=== PATIENT | male | born 1935 | race Caucasian/White ===

== ENCOUNTER → 2016-12-26 | Outpatient (CLI) | payer MEDICARE, MEDICAID ==
[~2016-12-26] MED LIST: BACIDCA PO; CHLO25TA3 PO; CHOL4PKT PO; COSOPHPLUS OU; FOLI1TAB86 PO; GASTROGRAFIN SOLUTION 30ML (Q9963) As Ordered ONE; ISOVUE-370 76% 100ML VIAL (Q9967) As Ordered ONE; LEVO500T PO; LISI5TAB PO; THERTAB56 PO; TRAV04OPD OU; VALS160T PO; VITA100T2 PO
--- NOTE | 2016-12-26 12:49 | REP ---
CT NECK WITH CONTRAST: HISTORY: Metastatic carcinoma. Contrast: Isovue 370 100 mL. COMPARISON: 10/06/2016 There is thickening of the epiglottis and aryepiglottic folds. Increased density is present in the retropharyngeal, pre-epiglottic and paralaryngeal spaces. This represent post radiation change. Increased soft tissue density is present in the carotid spaces consistent with scarring. The naso- and oropharynx and subglottic trachea are normal in appearance. The salivary and thyroid glands are normal. Small lymph nodes less than 1 cm in size are present in the posterior triangles and subdental area. Atherosclerotic calcification is present at the carotid bifurcations. 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 A catheter is present in the right internal jugular vein. There is thickening of the right anterior subcutaneous soft tissue at the level of the larynx. This surrounds the right internal jugular vein catheter. The degree of soft tissue thickening is decreased compared to the previous study. Degenerative change is present in the cervical spine. The lung apices are clear. The visualized sinuses are clear. IMPRESSION: 1. There is no neck mass or adenopathy. 2. Findings consistent with post radiation change. 3. There is thickening of the right anterior subcutaneous tissue at the level of the larynx that is decreased compared to the previous study. Signed by Jeremy Gusman MD 12/26/2016 01:06 P
--- NOTE | 2016-12-26 13:06 | REP ---
CT STUDY OF THE ABDOMEN WITHOUT AND WITH IV CONTRAST: WITH ORAL CONTRAST. 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 Comparison CT study of the abdomen is from August 04, 2016. CT CONTRAST DOSE: 100 mL of Isovue-[address] FINDINGS: The liver and the spleen are normal in size, homogeneous in texture on pre- and postcontrast images. There is a large heterogeneously enhancing mass in the right lower lobe of the lung discussed in greater detail on the chest CT study. There are cysts in the upper pole of each kidney, one on each side. These are unchanged. No adrenal lesion is seen on either side. There are two retrocaval lymph nodes at the level of the diaphragmatic chet on the right side which are unchanged from the prior study of August 04, 2016. Similarly, there are two periaortic lymph nodes at the level of the diaphragmatic chet on the left. These are felt to be unchanged as well. The largest of these measures 9 mm in short-axis dimension, unchanged by my measurements from the prior study. No progressive change is seen. No pancreatic mass is observed. No other periaortic or retroperitoneal or upper abdominal adenopathy is seen. Small and large intestinal bowel loops are unremarkable. No bony destructive lesion is appreciated. IMPRESSION: Stable upper abdominal lymph nodes. No new intra-abdominal finding. Large mass in the right lower lobe of the lung. Signed by Angel Patton MD 12/26/2016 04:46 P
--- NOTE | 2016-12-26 13:20 | REP ---
CT STUDY OF THE CHEST WITH IV CONTRAST: HISTORY: Metastatic head and neck cancer to the lungs. Comparison chest CT study is from October 06, 2016. Comparison is also made with August 04, 2016. CT CONTRAST DOSE: 100 mL of Isovue-[address] FINDINGS: There is a large metastatic mass lesion in the right lower lobe again noted. Current dimensions are 6.2 cm craniocaudal by 5.7 cm medial to lateral by 5.6 cm anterior to posterior. On October 06, 2016, these dimensions were 5.6 x 5.2 x 4.6 cm. This mass is very slightly larger. There is a 4 mm nodule in the right upper lobe on today's CT study which has increased in size from the 10/06/2016 study. This cannot be seen on the August 04, 2016 prior exam. There is a nodule in the right lower lobe anteriorly adjacent to the major fissure which has increased from 7 to 9 mm. There are multiple other metastatic pulmonary nodules which appear to be unchanged. There is right hilar, subcarinal, and precarinal adenopathy which is felt to be unchanged in the interval since the most recent prior study. No new adenopathy is seen. There is a small quantity of right pleural fluid. This is not a new finding. The large mass in the right lower lobe abuts the pleural surface over a 4.9 cm interface which has increased since the prior study. No bony destructive lesion is seen. IMPRESSION: There is evidence of progression of intrathoracic disease as above. Signed by Anegl Patton MD 12/26/2016 04:46 P
== END ==
LOC: M RAD 09:21
PROVIDERS: ATTEND Internal Medicine Medical Oncology
DX: C76.0 Malignant neoplasm of head, face and neck (principal); C34.90 Malignant neoplasm of unspecified part of unspecified bronchus or lung; R93.8 Abnormal findings on diagnostic imaging of other specified body structures
CPT/HCPCS: 70491; 71260; 74170; Q9963; Q9967

== ENCOUNTER → 2017-01-26 | Outpatient (REF) | payer MEDICARE, MEDICAID ==
[~2017-01-26] MED LIST changes: -GASTROGRAFIN SOLUTION 30ML (Q9963) As Ordered ONE; -ISOVUE-370 76% 100ML VIAL (Q9967) As Ordered ONE
[2017-01-26 14:48] LABS: THYROXINE (T4) 6.9 UG/DL (4.5-12.0)
== END ==
LOC: M LAB REF 13:12
PROVIDERS: ATTEND Internal Medicine Medical Oncology
DX: C32.9 Malignant neoplasm of larynx, unspecified (principal); Z79.899 Other long term (current) drug therapy

== ENCOUNTER → 2017-02-16 | Outpatient (REF) | payer MEDICARE, MEDICAID ==
[2017-02-16 13:56] LABS: THYROXINE (T4) 8.3 UG/DL (4.5-12.0)
== END ==
LOC: M LAB REF 13:07
PROVIDERS: ATTEND Internal Medicine Medical Oncology
DX: C32.9 Malignant neoplasm of larynx, unspecified (principal); Z79.899 Other long term (current) drug therapy

== ENCOUNTER 2017-02-26 09:51 | Emergency (ER) | payer MEDICARE, MEDICAID ==
[~2017-02-26] VITALS: Ht 170.2 cm; Wt 70.3 kg
[2017-02-26] MEDS ORDERED: TRAV04OPD OU (10:04)
[2017-02-26] MEDS ORDERED: KEYT1SOL IV (10:04)
[2017-02-26] MEDS ORDERED: [UNRECOGNIZED DRUG - OTHER] (10:04)
[2017-02-26] MEDS ORDERED: IPRATROPIUM 0.5MG/ALBUTEROL 2.5MG INH SOL UD 3ML (DUONEB)(J7620) NEB ONE (10:15)
[2017-02-26] MEDS ORDERED: PROA1AER INH (10:46)
[2017-02-26 10:53] VITALS: BP 133/64
--- NOTE | 2017-02-26 10:55 | REP ---
CHEST, TWO VIEWS: HISTORY: Cough. COMPARISON: Portable chest 05/26/[address] chest 12/26/2016. Several small ill-defined parenchymal densities are present in the lungs. The heart is normal in size. The pulmonary vasculature is normal in appearance. The bony structure is intact. An Izhhln-R-Gkah catheter is present. IMPRESSION: There are several small ill-defined parenchymal densities in the lungs. These are better seen on recent CT of the chest 12/26/2016. Signed by Jeremy Gusman MD 02/26/2017 11:00 A
--- NOTE | 2017-02-26 12:10 | ED PDOC ---
Post-Departure Follow-Up radiology report faxed to Dr. Marley, PCP Sindy Martinez MD February 26, 2017 12:10
== END 2017-02-26 10:55 | disposition home or self-care (01) ==
LOC: M ED 10:22
DX: J44.0 Chronic obstructive pulmonary disease with (acute) lower respiratory infection (principal); I10 Essential (primary) hypertension; F17.200 Nicotine dependence, unspecified, uncomplicated; Z79.899 Other long term (current) drug therapy

== ENCOUNTER → 2017-03-16 | Outpatient (REF) | payer MEDICARE, MEDICAID ==
[~2017-03-16] MED LIST changes: +KEYT1SOL IV; +PROA1AER INH; +[UNRECOGNIZED DRUG - OTHER]
[2017-03-16 13:37] LABS: FREE T4 0.96 NG/DL (0.76-1.46)
== END ==
LOC: M LAB REF 12:54
PROVIDERS: ATTEND Internal Medicine Medical Oncology
DX: C34.90 Malignant neoplasm of unspecified part of unspecified bronchus or lung (principal); Z79.899 Other long term (current) drug therapy

== ENCOUNTER → 2017-04-15 | Outpatient (CLI) | payer MEDICARE, MEDICAID ==
[~2017-04-15] MED LIST changes: +ANUC25SU; +BENT10CA PO; +DEXA4TA PO; +GABA-279 PO; +LEVO50TA5 PO; +MEGA625S PO; +OXYC1TAB23 PO; +PANT40TA2 PO; +PERC5TAB12 PO; -PROA1AER INH; +PROAAER10 INH; +PROC2.5C; +REGL10TA6 PO
== END ==
LOC: M IRPRO 09:39
PROVIDERS: ATTEND Internal Medicine Medical Oncology
DX: Z53.8 Procedure and treatment not carried out for other reasons (principal)

== ENCOUNTER → 2017-04-17 | Outpatient (REF) | payer MEDICARE, MEDICAID ==
[~2017-04-17] MED LIST changes: -ANUC25SU; -BENT10CA PO; -DEXA4TA PO; -GABA-279 PO; -LEVO50TA5 PO; -MEGA625S PO; -OXYC1TAB23 PO; -PANT40TA2 PO; -PERC5TAB12 PO; +PROA1AER INH; -PROAAER10 INH; -PROC2.5C; -REGL10TA6 PO
[2017-04-17 14:39] LABS: FREE T4 0.35 NG/DL (0.76-1.46)
== END ==
LOC: M LAB REF 12:34
PROVIDERS: ATTEND Internal Medicine Medical Oncology
DX: C32.9 Malignant neoplasm of larynx, unspecified (principal)

== ENCOUNTER → 2017-04-17 | Outpatient (CLI) | payer MEDICARE, MEDICAID ==
[~2017-04-17] MED LIST changes: +ISOVUE-300 61% 50ML VIAL (Q9967) As Ordered ONE
--- NOTE | 2017-04-18 15:37 | REPKIM ---
CLINICAL HISTORY: Patient has a right IJ chest [id number]. Patient presents for suspected port malfunction. PROCEDURE PERFORMED: Contrast injection via the pre-existing chest port INTERVENTIONALIST: Evie Benton MD CONSENT: The risks, benefits and alternatives to the procedure were explained to the patient and informed written consent was obtained. CONTRAST: less than 10 mL Isovue 300 SEDATIOIN: None EBL: None FLUORO TIME: 0.1 minutes PROCEDURE/FINDINGS: The patient was brought to the interventional radiology suite and was positioned supine on the table. Time out procedure was performed. The right chest was prepped and draped in the usual sterile fashion. Initial fluoroscopy showed the pre-existing right chest Drsxnl-Z-Udcf is intact with its tip at the cavoatrial junction. The fluoroscopy showed the catheter in a satisfactory course with no evidence of kink. The port was accessed using a 22-gauge Palomo needle. Contrast was injected and DSA images were obtained. This showed the port is patent with no evidence of extravasation of contrast. The port was then flushed with saline. Heparin (100 units/ml), was locked in the port. The Palomo needle was removed. The patient tolerated the procedure well with no immediate complications. This procedure was performed using fluoroscopy. Dr. Benton was present. IMPRESSION: The pre-existing right chest Sxngal-C-Iekh catheter is in a satisfactory course with its tip at the cavoatrial junction. The port aspirates and flushes freely with no evidence of extravasation. The chest port is ready for use. cc: Antonieta Bonilla MD [facility]
== END | disposition home or self-care (01) ==
LOC: M IRPRO 09:38
DX: C32.9 Malignant neoplasm of larynx, unspecified (principal)
CPT/HCPCS: 36598; 84439; 84443; 84481; Q9967

== ENCOUNTER → 2017-05-01 | Outpatient (CLI) | payer MEDICARE, MEDICAID ==
[~2017-05-01] MED LIST changes: +ANUC25SU; +BENT10CA PO; +DEXA4TA PO; +GABA-279 PO; -ISOVUE-300 61% 50ML VIAL (Q9967) As Ordered ONE; +ISOVUE-370 76% 100ML VIAL (Q9967) As Ordered ONE; +LEVO50TA5 PO; +MEGA625S PO; +OXYC1TAB23 PO; +PANT40TA2 PO; +PERC5TAB12 PO; -PROA1AER INH; +PROAAER10 INH; +PROC2.5C; +REGL10TA6 PO
--- NOTE | 2017-05-01 12:17 | REP ---
Clinical: Malignancy for follow up. Technique: Axial contrast enhanced images from the thoracic inlet to the upper abdomen using 100 ml Isovue 370 intravenous contrast material with coronal and sagittal re-formations. Comparison: 03/12/2017. Findings: Mass lesion in the medial right lower lobe appears to have increased from prior examination currently measuring 6.1 cm maximal diameter previously measuring 5.1 cm maximal diameter at comparable levels. Right infrahilar mass/adenopathy is also increased from prior examination along with mediastinal and right hilar lymph nodes. Smaller scattered metastatic foci in the right upper lobe show slight increase in size as do the satellite metastatic lesions in the left upper lobe. No pleural effusion. No pneumothorax. Tracheobronchial tree is patent. Atherosclerotic changes to the thoracic aorta and coronary arteries again noted and stable. No pericardial effusion or cardiomegaly. Surrounding musculoskeletal structures demonstrate degenerative change. Limited evaluation of the upper abdomen demonstrates normal bilateral adrenal glands and renal hypodensities which likely represent cysts. Small lymph nodes in the epigastric region may be slightly increased in size including a single lymph node just medial to the lesser curvature of the stomach which measures 14 mm on current examination and previously measured 9 mm at comparable levels. Impression: 1. Intrathoracic metastatic lesions and mediastinal/hilar adenopathy appear to have increased in size compared to prior examination. 2. Slight increase in size to the upper abdominal epigastric lymph nodes. 3. Renal hypodensities similar to prior examination likely representing cysts. Signed by Javier Domingo MD 05/01/2017 12:08 P
== END ==
LOC: M RAD 11:08
PROVIDERS: ATTEND Internal Medicine Medical Oncology
DX: R07.9 Chest pain, unspecified (principal); R93.8 Abnormal findings on diagnostic imaging of other specified body structures; R59.0 Localized enlarged lymph nodes
CPT/HCPCS: 71260; Q9967

== ENCOUNTER → 2017-05-04 | Outpatient (CLI) | payer MEDICARE, MEDICAID ==
[~2017-05-04] MED LIST changes: -ISOVUE-370 76% 100ML VIAL (Q9967) As Ordered ONE
--- NOTE | 2017-05-04 10:30 | REP ---
THORACIC SPINE, THREE VIEWS: HISTORY: Left scapula pain. There is no acute fracture or subluxation. There is loss of height of several mid and lower thoracic intervertebral discs. Osteophytes are present in the lower thoracic spine. IMPRESSION: Degenerative change as described above. Signed by Jeremy Gusman MD 05/04/2017 10:37 A
--- NOTE | 2017-05-04 10:31 | REP ---
LEFT SCAPULA, TWO VIEWS: HISTORY: Scapula pain. There is no acute fracture or dislocation. The joint spaces are normal in appearance. IMPRESSION: There is no acute fracture or dislocation. Signed by Jeremy Gusman MD 05/04/2017 10:36 A
== END ==
LOC: M RAD 09:59
PROVIDERS: ATTEND Internal Medicine Medical Oncology
DX: M25.512 Pain in left shoulder (principal); M51.34 Other intervertebral disc degeneration, thoracic region; M25.78 Osteophyte, vertebrae

== ENCOUNTER → 2017-05-12 | Outpatient (REF) | payer MEDICARE, MEDICAID ==
[2017-05-12 13:39] LABS: FREE T4 0.48 NG/DL (0.76-1.46)
== END ==
LOC: M LAB REF 12:19
PROVIDERS: ATTEND Internal Medicine Medical Oncology
DX: C32.9 Malignant neoplasm of larynx, unspecified (principal); Z79.899 Other long term (current) drug therapy

== ENCOUNTER → 2017-05-18 | Outpatient (CLI) | payer MEDICARE, MEDICAID ==
--- NOTE | 2017-05-18 14:40 | REP ---
WHOLE BODY BONE SCAN: Following the intravenous administration of 22 mCi of technetium-99m MDP, patient's whole body is imaged in the anterior and posterior projections. Positional oblique images of the thoracic and pelvic regions are performed as well as lateral views of the calvarium, knees, and feet. Linear increased uptake is seen in the posterior left 4th rib compatible with metastatic disease. There is a rounded focal area of increased uptake in the right occipital bone also compatible with a metastatic lesion. There appears to be increased uptake in the left posterior facets of L5 probably due to arthritic changes. Mild arthritic uptake is seen in the hands and wrists bilaterally as well as the knees and feet. There is increased uptake in the right superior pubic bone suspicious for metastatic disease. IMPRESSION: Three foci of increased uptake suspicious for metastatic disease, in the right occipital bone, right superior pubic bone, and left 4th rib posteriorly. Signed by Tonny Canales MD 05/18/2017 05:25 P
== END ==
LOC: M RAD 09:27
PROVIDERS: ATTEND Internal Medicine Medical Oncology
DX: M25.512 Pain in left shoulder (principal); C32.9 Malignant neoplasm of larynx, unspecified; R93.7 Abnormal findings on diagnostic imaging of other parts of musculoskeletal system
CPT/HCPCS: 78306; A9503

== ENCOUNTER 2017-05-28 09:34 | Emergency (ER) | payer MEDICARE, MEDICAID ==
[~2017-05-28] VITALS: Ht 170.2 cm; Wt 70.4 kg
[~2017-05-28 09:34] MED LIST changes: -ANUC25SU; -BENT10CA PO; -DEXA4TA PO; -GABA-279 PO; -LEVO50TA5 PO; -MEGA625S PO; -OXYC1TAB23 PO; -PANT40TA2 PO; -PERC5TAB12 PO; -PROC2.5C; -REGL10TA6 PO
[2017-05-28] MEDS ORDERED: LEVO50TA5 PO (09:51)
[2017-05-28] MEDS ORDERED: ANUC25SU (09:51)
[2017-05-28] MEDS ORDERED: PROC2.5C (09:51)
[2017-05-28] MEDS ORDERED: NS 500 ML IV ONE (10:45)
[2017-05-28 11:08] LABS: BASO % 0.5 % (0.0-1.0); EOS # 0.4 K/mm3 (0.0-0.50); EOS % 4.7 % (0.0-3.0); LARGE UNSTAINED CELL # 0.2 K/mm3 (0.0-0.4); LARGE UNSTAINED CELL % 2.2 % (0.0-4.0); LYMPH # 0.9 K/mm3 (1.5-4.5); MEAN CORPUSCULAR HEMOGLOBIN 29.6 pg (27.0-33.0); MEAN CORPUSCULAR HGB CONC 34.4 g/dl (32.0-36.5); MEAN CORPUSCULAR VOLUME 85.9 fl (80.0-96.0); MONO # 0.7 K/mm3 (0.0-0.8); MONO % 7.7 % (0.0-5.0); NEUTROPHILS # 6.6 K/mm3 (1.8-7.7); NEUTROPHILS % 74.9 % (36.0-66.0); PLATELET COUNT, AUTOMATED 419 k/mm3 (150-450); RED CELL DISTRIBUTION WIDTH 14.9 % (11.5-14.5); WHITE BLOOD COUNT 8.7 K/mm3 (4.0-10.0)
[2017-05-28 11:23] LABS: ALBUMIN 3.9 GM/DL (3.2-5.2); ALBUMIN/GLOBULIN RATIO 0.93 (1.00-1.93); ALKALINE PHOSPHATASE 77 U/L (45-117); ALT/SGPT 13 U/L (12-78); ANION GAP 8 MEQ/L (8-16); AST/SGOT 15 U/L (15-37); BILIRUBIN,DIRECT 0.2 MG/DL (0.0-0.2); BILIRUBIN,TOTAL 0.8 MG/DL (0.2-1.0); BLOOD UREA NITROGEN 15 MG/DL (7-18); CALCIUM LEVEL 9.3 MG/DL (8.8-10.2); CARBON DIOXIDE LEVEL 30 MEQ/L (21-32); CHLORIDE LEVEL 93 MEQ/L (98-107); CREATININE FOR GFR 1.09 MG/DL (0.70-1.30); GLOMERULAR FILTRATION RATE > 60.0 (>35); GLUCOSE, FASTING 101 MG/DL (83-110); POTASSIUM SERUM 3.8 MEQ/L (3.5-5.1); SODIUM LEVEL 131 MEQ/L (136-145); TOTAL PROTEIN 8.1 GM/DL (6.4-8.2)
[2017-05-28] MEDS ORDERED: REGL10TA6 PO (12:12)
[2017-05-28] MEDS ORDERED: BENT10CA PO (12:12)
--- NOTE | 2017-05-28 12:17 | REP ---
CT ABDOMEN AND PELVIS WITHOUT CONTRAST: 05/28/2017. Comparison: 03/12/2017 CT. Clinical history: Abdominal pain and bloating. Known lung carcinoma. Findings: CT abdomen and pelvis: Noncontrast images with coronal and sagittal reconstructions provided. The lung bases show a medial basal segment right lower lobe mass now up to 5.7 cm, previously 5.1 cm in February. No definite effusion. Some basilar fibrotic changes are noted. Heart is not enlarged. No pericardial thickening or effusion. No definite hiatal hernia. The liver, spleen, gallbladder, pancreas and adrenal glands are without acute finding. No calcified gallstones nor inflammatory changes adjacent to the pancreas. There are exophytic cysts off the upper poles of both kidneys unchanged. There is no hydronephrosis, stone or any definite solid renal mass. The aorta is heavily calcified without aneurysm. No periaortic or other retroperitoneal pathologic sized lymphadenopathy. There is no sign of colitis, diverticulitis or appendicitis. Stranding in the perinephric fat noted, left somewhat greater than right but not much changed. There is no ascites or free air in the abdomen or pelvis. Bones show degenerative disc changes and some facet arthropathy, but no compression deformity of destructive lesion in the spine and the visualized ribs were intact. CT pelvis: Sacrum, SI joints, pelvis, hips and symphysis pubis were all grossly intact and unchanged. Bladder is nearly empty. Its wall thickness cannot be judged. Seminal vesicles symmetric. There are vascular calcifications in the deep pelvis, iliac and femoral arteries as well as the seminal vesicles. There is calcification in the prostate, which is mildly enlarged. There is no ventral or inguinal hernia nor pathologic sized inguinal adenopathy. Some fluid-filled small bowel loops distally without dilatation. Impression: 1. Nonspecific gas pattern without abnormal dilatation, but fluid-filled bowel loops in their distal and terminal ileum may reflect some gastroenteritis or focal ileus. No obstruction, colitis, diverticulitis or other acute bowel abnormality. 2. Heavily calcified aorta and branches without aneurysm. 3. Bladder empty, cannot evaluation its wall thickness. There is no renal, ureteral or bladder stone. 4. The gallbladder distended without calcified stone or mass. The adrenal glands, liver, spleen and kidneys without definite acute finding. 5. 5.7 cm mass medial basal segment right lower lobe increased from 5.1 cm on the February study. Seen only in part. Signed by Teo Jaffe MD 05/28/2017 06:30 P
[2017-05-28 12:20] VITALS: BP 167/78
== END 2017-05-28 12:21 | disposition home or self-care (01) ==
LOC: M ED 09:34
DX: K52.9 Noninfective gastroenteritis and colitis, unspecified (principal); I70.0 Atherosclerosis of aorta; R91.1 Solitary pulmonary nodule; N28.1 Cyst of kidney, acquired; R10.9 Unspecified abdominal pain; C34.90 Malignant neoplasm of unspecified part of unspecified bronchus or lung; I49.9 Cardiac arrhythmia, unspecified; I10 Essential (primary) hypertension; Z87.891 Personal history of nicotine dependence; Z79.899 Other long term (current) drug therapy

== ENCOUNTER → 2017-05-29 | Outpatient (REF) | payer MEDICARE, MEDICAID ==
[~2017-05-29] MED LIST changes: +ANUC25SU; +BENT10CA PO; +DEXA4TA PO; +GABA-279 PO; +LEVO50TA5 PO; +MEGA625S PO; +OXYC1TAB23 PO; +PANT40TA2 PO; +PERC5TAB12 PO; +PROC2.5C; +REGL10TA6 PO
[2017-05-29 14:34] LABS: FREE T4 0.71 NG/DL (0.76-1.46)
== END ==
LOC: M LAB REF 13:31
PROVIDERS: ATTEND Internal Medicine Medical Oncology
DX: C32.9 Malignant neoplasm of larynx, unspecified (principal); Z79.899 Other long term (current) drug therapy

== ENCOUNTER 2017-07-02 05:34 | Emergency (ER) | payer MEDICARE, MEDICAID ==
[~2017-07-02] VITALS: Ht 167.6 cm; Wt 70.5 kg
[~2017-07-02 05:34] MED LIST changes: -DEXA4TA PO; -GABA-279 PO; -MEGA625S PO; -OXYC1TAB23 PO; -PANT40TA2 PO; -PERC5TAB12 PO
[2017-07-02] MEDS ORDERED: PERC5TAB12 PO (06:08)
[2017-07-02] MEDS ORDERED: OXYCODONE/APAP 5MG/325MG(BULK FOR ED) 1 TABLET PO ONE (06:15)
[2017-07-02 06:28] VITALS: BP 140/78
[2017-07-03] MEDS ORDERED: GABA-279 PO (04:39)
== END 2017-07-02 06:33 | disposition home or self-care (01) ==
LOC: M ED 05:34
DX: M25.512 Pain in left shoulder (principal); C78.00 Secondary malignant neoplasm of unspecified lung; Z79.899 Other long term (current) drug therapy

== ENCOUNTER 2017-07-03 04:24 | Emergency (ER) | payer MEDICARE, MEDICAID ==
[~2017-07-03] VITALS: Ht 167.6 cm; Wt 70.5 kg
[~2017-07-03 04:24] MED LIST changes: +PERC5TAB12 PO
[2017-07-03] MEDS ORDERED: GABA-279 PO (04:39)
[2017-07-03] MEDS ORDERED: ONDANSETRON 4MG/2ML VIAL (J2405) IV ONE (06:30)
[2017-07-03] MEDS ORDERED: NS 1,000 ML IV ONE (06:30)
[2017-07-03] MEDS ORDERED: MORPHINE 4 MG/ML 1ML SYRINGE IV ONE (06:30)
[2017-07-03 07:19] LABS: ALBUMIN/GLOBULIN RATIO 0.77 (1.00-1.93); ALKALINE PHOSPHATASE 62 U/L (45-117); ALT/SGPT 11 U/L (12-78); ANION GAP 10 MEQ/L (8-16); AST/SGOT 11 U/L (15-37); BILIRUBIN,DIRECT 0.2 MG/DL (0.0-0.2); BILIRUBIN,TOTAL 0.6 MG/DL (0.2-1.0); BLOOD UREA NITROGEN 13 MG/DL (7-18); CALCIUM LEVEL 8.6 MG/DL (8.8-10.2); CARBON DIOXIDE LEVEL 25 MEQ/L (21-32); CHLORIDE LEVEL 99 MEQ/L (98-107); CREATININE FOR GFR 0.91 MG/DL (0.70-1.30); GLOMERULAR FILTRATION RATE > 60.0 (>35); GLUCOSE, FASTING 108 MG/DL (83-110); POTASSIUM SERUM 3.9 MEQ/L (3.5-5.1); SODIUM LEVEL 134 MEQ/L (136-145); TOTAL PROTEIN 6.9 GM/DL (6.4-8.2)
[2017-07-03 07:29] LABS: BASO % 0.5 % (0.0-1.0); EOS # 0.2 K/mm3 (0.0-0.50); EOS % 3.4 % (0.0-3.0); LARGE UNSTAINED CELL # 0.1 K/mm3 (0.0-0.4); LARGE UNSTAINED CELL % 1.8 % (0.0-4.0); LYMPH # 0.6 K/mm3 (1.5-4.5); LYMPH % 8.1 % (24.0-44.0); MEAN CORPUSCULAR HEMOGLOBIN 30.3 pg (27.0-33.0); MEAN CORPUSCULAR HGB CONC 34.6 g/dl (32.0-36.5); MEAN CORPUSCULAR VOLUME 87.4 fl (80.0-96.0); MONO # 0.5 K/mm3 (0.0-0.8); NEUTROPHILS # 5.9 K/mm3 (1.8-7.7); NEUTROPHILS % 79.2 % (36.0-66.0); PLATELET COUNT, AUTOMATED 361 k/mm3 (150-450); RED CELL DISTRIBUTION WIDTH 14.1 % (11.5-14.5); WHITE BLOOD COUNT 7.5 K/mm3 (4.0-10.0)
[2017-07-03 08:33] VITALS: BP 152/80
== END 2017-07-03 08:35 | disposition home or self-care (01) ==
LOC: M ED 04:24
DX: I95.1 Orthostatic hypotension (principal); I10 Essential (primary) hypertension; J45.909 Unspecified asthma, uncomplicated; C32.9 Malignant neoplasm of larynx, unspecified; C79.51 Secondary malignant neoplasm of bone; E07.9 Disorder of thyroid, unspecified; Z79.899 Other long term (current) drug therapy; Z87.891 Personal history of nicotine dependence

== ENCOUNTER 2017-07-05 06:31 | Inpatient (IN) | payer MEDICARE, MEDICAID ==
[~2017-07-05] VITALS: Ht 167.6 cm; Wt 70.4 kg
[~2017-07-05 06:31] MED LIST changes: +GABA-279 PO
[2017-07-05] MEDS ORDERED: NS 1,000 ML IV ONE (07:15)
[2017-07-05] MEDS ORDERED: MORPHINE 4 MG/ML 1ML SYRINGE IV ONE (07:15)
[2017-07-05] MEDS ORDERED: ONDANSETRON 4MG/2ML VIAL (J2405) IV ONE (07:15)
[2017-07-05 07:23] LABS: INR 0.98
[2017-07-05 07:24] LABS: BASO % 0.4 % (0.0-1.0); EOS # 0.3 K/mm3 (0.0-0.50); EOS % 3.6 % (0.0-3.0); LARGE UNSTAINED CELL # 0.2 K/mm3 (0.0-0.4); LARGE UNSTAINED CELL % 2.4 % (0.0-4.0); LYMPH # 0.8 K/mm3 (1.5-4.5); LYMPH % 10.3 % (24.0-44.0); MEAN CORPUSCULAR HGB CONC 34.5 g/dl (32.0-36.5); MEAN CORPUSCULAR VOLUME 87.1 fl (80.0-96.0); MONO # 0.5 K/mm3 (0.0-0.8); MONO % 6.9 % (0.0-5.0); NEUTROPHILS # 5.8 K/mm3 (1.8-7.7); NEUTROPHILS % 76.4 % (36.0-66.0); PLATELET COUNT, AUTOMATED 425 k/mm3 (150-450); WHITE BLOOD COUNT 7.6 K/mm3 (4.0-10.0)
[2017-07-05 07:38] LABS: ANION GAP 11 MEQ/L (8-16); BLOOD UREA NITROGEN 10 MG/DL (7-18); CALCIUM LEVEL 9.2 MG/DL (8.8-10.2); CARBON DIOXIDE LEVEL 26 MEQ/L (21-32); CHLORIDE LEVEL 99 MEQ/L (98-107); CREATININE FOR GFR 1.01 MG/DL (0.70-1.30); GLOMERULAR FILTRATION RATE > 60.0 (>35); GLUCOSE, FASTING 104 MG/DL (83-110); SODIUM LEVEL 136 MEQ/L (136-145)
[2017-07-05] MEDS ORDERED: ISOVUE-370 76% 100ML VIAL (Q9967) As Ordered ONE (07:42)
--- NOTE | 2017-07-05 08:30 | REP ---
Clinical: History of pulmonary malignancy with shortness of breath. Technique: Axial contrast enhanced images from the thoracic inlet to the upper abdomen using 100 ml Isovue 370 intravenous contrast material with multiplanar re-formations. Findings: Satisfactory enhancement of the pulmonary vasculature is achieved and no filling defects are identified to suggest pulmonary embolus. Mediastinal and hilar adenopathy as well as metastatic lesions throughout the bilateral lung womack have increased in size. As example, the lesion in the left upper lobe previously measuring 8.5 mm currently measures 14.2 mm and conglomerate right infrahilar adenopathy previously measuring approximately 4 x 2.4 cm maximal diameter currently measures 5.3 x 3.5 cm maximal diameter. Mass in the right lower lobe has increased in overall volume as well. Adjacent small right lower lobe pleural effusion is also identified. Underlying chronic interstitial changes noted throughout the bilateral lung womack. Atherosclerotic changes to the thoracic aorta and coronary arteries noted without aortic aneurysm. The heart is upper limits of normal in size without pericardial effusion. There is no evidence for pneumothorax. The tracheobronchial tree is relatively patent although mass effect on bronchi to the right lower lobe through the area of adenopathy is suggested which may eventually cause postobstructive atelectasis. Surrounding osseous structures without evidence for acute fracture. Limited evaluation of the upper abdomen demonstrates normal bilateral adrenal glands. There is an enlarged lymph node anterior to the IVC in the upper abdomen (image 204) which currently measures 1.7 cm diameter and previously measured 9 mm. Impression: 1. No evidence for pulmonary embolus. 2. Malignancy including metastatic disease, adenopathy, and primary lesion in the right lower lobe have increased from prior examination. 3. An upper abdominal lymph node anterior to the IVC at the level of the jose de jesus hepatis has increased and now appears metastatic. Signed by Javier Domingo MD 07/05/2017 08:21 A
[2017-07-05] MEDS ORDERED: ONDANSETRON 4MG/2ML VIAL (J2405) IV PRN (09:00)
[2017-07-05] MEDS ORDERED: BISACODYL 5 MG TAB PO PRN (09:00)
[2017-07-05] MEDS ORDERED: OXYC1TAB23 PO (10:06)
[2017-07-05] MEDS ORDERED: TRAV04OPD OU (10:06)
[2017-07-05] MEDS ORDERED: KETOROLAC 30 MG/ML VIAL (J1885) IV ONE (10:15)
[2017-07-05] MEDS ORDERED: ALPRAZolam 0.25 MG TAB PO ONE (10:15)
[2017-07-05] MEDS ORDERED: GABAPENTIN 100 MG CAP PO PRN (10:15)
[2017-07-05] MEDS: PERCOCET 5MG/325MG TAB PO PRN (10:18)
--- NOTE | 2017-07-05 10:30 | REP ---
Clinical: Left shoulder pain. Technique: Internal rotation, external rotation, and Y view. Comparison: 05/04/2017. Findings: Mild degenerative changes are appreciated. No acute fracture dislocation. No obvious osseous lytic or blastic lesions are identified to suggest metastatic disease. Impression: Mild age-related degenerative changes. Signed by Javier Domingo MD 07/05/2017 10:22 A
[2017-07-05] MEDS ORDERED: NALOXONE INJ 0.4 MG/1 ML VIAL (J2310) IV PRN (10:45)
[2017-07-05] MEDS ORDERED: MORPHINE 2 MG/ML 1ML SYRINGE IV PRN (10:45)
[2017-07-05] MEDS ORDERED: PERCOCET 5MG/325MG TAB PO ONE (11:00)
[2017-07-05 11:15] VITALS: BP_SYST 118; BP_SYST 130; BP_DIAS 66; BP_DIAS 69
--- NOTE | 2017-07-05 11:27 | REP ---
Clinical: Malignancy and metastatic disease with altered mental status. Comparison: 11/24/2011. Findings: Diffuse bilateral metastatic lesions are appreciated with surrounding vasogenic edema. There is no evidence of hydrocephalous or midline shift. The basilar cisterns are patent and without evidence for herniation. 2 cm lesion identified in the right temporal lobe; two lesions identified in the posterior right parietal lobe measure 1.9 cm and 2.4 cm; 2.1 cm lesion in the left parietal lobe; 1.3 cm lesion in the left parieto-occipital lobe; two lesions identified in the left frontal lobe measure 1.9 cm and 2.2 cm. Further smaller lesions cannot definitively be excluded. Impression: Diffuse bilateral metastatic disease with surrounding vasogenic edema. There is no evidence for midline shift or herniation. The ventricles and cisterns are symmetric and normal. Signed by Javier Domingo MD 07/05/2017 11:19 A
--- NOTE | 2017-07-05 12:44 | HPE ---
DATE OF ADMISSION: 07/05/2017 CHIEF COMPLAINT: "I had a panic attack and my left shoulder hurts." HISTORY OF THE PRESENT ILLNESS: This is an 82-year-old male with a history of metastatic laryngeal cancer (CA) with left scapular pain, had been evaluated previously with a bone scan on 05/18/2017, which showed increased suspicious metastatic disease in the right occipital bone, right superior pubic bone and left fourth rib posteriorly. He had undergone chemotherapy in the past and follows with Dr. Bonilla with plans for radiation and chemotherapy as an outpatient. He was found on repeat CT chest on 05/01/2017 to have intrathoracic metastatic lesions and mediastinal hilar adenopathy, which have increased in size, as well as upper abdominal epigastric lymphadenopathy. Due to complaints of lightheadedness and panic symptoms, the patient was evaluated for pulmonary embolism (PE) via CT chest with intravenous (IV) contrast on 07/05/2017 in the emergency room, which showed no pulmonary embolism. Metastatic lesions with mediastinal hilar lymphadenopathy throughout bilateral lung womack, which have increased in size. Left upper lobe previously measured 8.5 mm, currently measures 14.2 mm and right infrahilar adenopathy measuring 4 x 2.4 cm in diameter, currently measures 5.3 x 3.5 maximal diameter. The mass in the right lower lobe has also increased in volume with a small right lower lobe pleural effusion identified and chronic changes in bilateral lungs. Tracheobronchial tree is currently patent but adenopathy may eventually cause postobstructive atelectasis. Surrounding osseous structures had no acute fracture. Enlarged lymph node anterior to the IVC in the upper abdomen measures 1.7 cm from previous 9 mm. Hospitalist service was called for admission for pain control of the left shoulder, as well as evaluation for patient's "panic attack." The patient states his symptoms have worsened over the past 2 days starting with feeling scared and could not sleep for the past 2 days with some lightheadedness at times. He denies chest pain, pressure or tightness, palpitations. He had some episodes of lightheadedness without near syncope. No changes in vision, diplopia. No nausea, vomiting, abdominal pain, dysuria, urgency, frequency, fever or chills. He has had a 3-pound weight loss in the past week due to decrease in appetite. Often, he complains of not knowing what he is doing and is worried about wandering about in the home and not knowing why he is doing that. Per the who is present at the bedside, the patient has been alert and awake, able to recognize her at all times and able to converse adequately. He denies any symptoms of upper or lower extremity weakness, paresthesias, numbness, difficulty with word finding or slurring of speech. The patient is admitted for further evaluation of left shoulder pain to rule out metastatic disease and pain control for the left shoulder, and evaluation for his complaints of disorientation. PAST MEDICAL HISTORY: 1. Metastatic laryngeal cancer with significant mediastinal and hilar adenopathy bilateral lung womack. 2. Stage IV T1, N2 epiglottis squamous cell cancer, status post radiation with metastatic lesions to the right occipital bone, right pubic bone, left fourth rib. 3. Salmonella pancolitis. 4. Acute kidney injury, creatinine of 6.2, which resolved. 5. History of alcohol use. 6. Hypothyroidism. ALLERGIES: No known drug allergies. HOME MEDICATIONS: - Percocet one tablet every 6 hours as needed for pain - valsartan hydrochlorothiazide 160-12.5 one tablet daily - gabapentin 100 mg twice a day as needed - levothyroxine 50 mcg daily - Travatan Z one drop both eyes (OU) nightly PAST SURGICAL HISTORY: Cataract extraction. Rectal surgery 50 years ago for unknown reason. SOCIAL HISTORY: He lives with his . Smokes cigars. Drank alcohol 4-5 beers, last drink was some time ago. Activities of daily living are intact. The patient has limited DO NOT RESUSCITATE; he would like a trial of cardiopulmonary resuscitation but no intubation and no feeding tube. Medical Orders for Life-Sustaining Treatment (MOLST) form signed at the bedside. Healthcare proxy is the patient's daughter, Kavitha Vasquez. REVIEW OF SYSTEMS: Twelve-point system negative aside from positive findings in history of the present illness. PHYSICAL EXAMINATION: Vital Signs: Temperature 96.9, pulse 87, respiratory rate 20, blood pressure 146/71, 98% on room air. Generally, the patient is awake, alert, oriented to person and place, answering questions appropriately. He is anicteric. No jaundice. Pupils are equally round, reactive to light and accommodation. Extraocular muscles are intact. Normocephalic, atraumatic. No cervical lymphadenopathy. Previous well-healed scars in the right cervical area. No thyromegaly. The patient has point tenderness on the anterior aspect of the left shoulder. Range of motion is limited due to pain with abduction. Able to flex and extend at the elbow. Some difficulty with raising his left arm above his head. No crepitus. No effusion at the acromioclavicular (AC) joint. Lungs are diminished but clear to auscultation. No wheezing, rales, or rhonchi. Heart: S1, S2, sinus rhythm. No murmurs, rubs or gallopss. Abdomen: Soft, nontender, nondistended. Positive bowel sounds times four quadrants. No hepatosplenomegaly, rebound, guarding. Extremities: No cyanosis, clubbing or pitting edema. Motor function 5/5 times four extremities. LABORATORY DATA: White count 7.6, hemoglobin 12, hematocrit 35, platelet count 425, 76% neutrophils. Sodium 136, potassium 4, chloride 99, bicarbonate 26, BUN 10, creatinine 1, glucose of 104, calcium 9.2, total CK 43, MB fraction 1.2. Troponin less than 0.02. INR is 0.98. CT chest: Pulmonary embolism (PE) protocol shows no filling defects. No pulmonary embolism. Mediastinal and hilar adenopathy as well as metastatic lesions throughout the bilateral lung womack have increased in size. Lesion in the left upper lobe previously measured 8.5 mm, now measures 14.2 mm. Right infrahilar adenopathy measuring approximately 4 x 2.4 cm maximal diameter, currently measures 5.3 x 3.5 maximal diameter. Mass in the right lower lobe has increased in volume as well with adjacent small right lower lobe pleural effusions identified, underlying chronic interstitial changes in bilateral lung womack. The tracheobronchial tree is patent, although mass effect on bronchi to the right lobe through the area of adenopathy suggested, which may eventually cause postobstructive atelectasis. There is an enlarged lymph node anterior to the IVC in the upper abdomen, which measures 1.7 cm diameter and previously measured 9 mm. ASSESSMENT AND PLAN: This is an 82-year-old male with a prior history of laryngeal cancer, followed by Dr. Bonilla, squamous cell cancer of the epiglottis , status post radiation and chemotherapy per the patient with new lesions on bone scan and bilateral lungs and mediastinal and hilar adenopathy, which have increased since April. Metastatic lesions noted in the right occipital bone, pubic bone, left fourth rib, history of hypertension, hypothyroidism, Salmonella pancolitis, acute kidney injury, which resolved, presents to emergency room with a 2-day history of "panic attacks," unable to sleep at night for the past few days with intractable pain of the left shoulder, prompting him to present to the emergency room. The patient was evaluated with an x-ray of the left shoulder, which showed osteoarthritic changes. Due to confusion and disorientation, CT of the head was obtained in order to rule out metastatic lesions to the brain. The patient will be admitted as an inpatient for two midnights for the following issues: 1. Recurrent Squamous cell carcinoma of epiglottis, status post chemotherapy/ radiation, now with recurrrence and new metastatic lesions in the lungs and bone and presents with intractable left shoulder pain - x-ray shows no metastatic lesions there suggestive of malignancy. At this time, the patient will be given as needed Percocet, physical therapy (PT). Radiation oncology was due to see him on Thursday. Will consult radiation oncology in the morning and defer to Dr. Bonilla for further management as an outpatient with chemotherapy. Dr. Jm Menchaca has been made aware of the patient's admission to the hospital. 2. Altered Mental Status with known history of metastatic cancer to lungs, with mediastinal and hilar LAD, and bone, will need to rule out mets to the brain. Due to complaints of lightheadedness and disorientation, "I'm not sure what I'm doing at times," a CT of the head was obtained to rule out metastatic lesions to the brain. Decadron 4mg po tid if brain mets and vasogenic edema. 3. Insomnia secondary to severe anxiety. The patient will be given low dose Ambien 2-1/2 mg nightly. The patient may refuse. 4. Left shoulder pain. Arthritic changes on the x-ray. Will consult orthopedic surgery for possible steroid injections. As needed Percocet for now. Physical therapy, occupational therapy (OT) for discharge planning. 5. Weight loss. Most likely secondary to cancer cachexia. The patient states that he has had a 3-pound weight loss. Will start on Megace to increase his appetite and nutrition consult if needed if the patient eats less than 50% of his food for supplementary nutrition. 6. Hypertension. Resume home dose of lisinopril and hydrochlorothiazide. 7. Hypothyroidism. Check Thyroid-stimulating hormone (TSH). Resume home dose of Synthroid. 9. History of cataracts. Continue with Xalatan eye drops. 8. Code status: The patient has limited DNR; he would like a trial of cardiopulmonary resuscitation but no mechanical intubation. MTDD
[2017-07-05] MEDS: ENOXAPARIN 30 MG/0.3 ML SYR (J1650) SC SCH (13:31)
[2017-07-05] MEDS: MEGESTROL ES SUSP 625 MG/5 ML UDC PO SCH (13:31)
[2017-07-05 14:00] VITALS: BP_SYST 141; BP_SYST 152; BP_DIAS 67; BP_DIAS 74
[2017-07-05] MEDS: ALPRAZolam 0.25 MG TAB PO PRN (15:49)
[2017-07-05 20:00] VITALS: BP 147/73
[2017-07-05] MEDS: zolPIDEM TARTRATE 5 MG TAB PO SCH (21:01)
[2017-07-05] MEDS: LATANOPROST 0.005% OPHTH SOLN 2.5 ML OU SCH (21:10)
[2017-07-06] VITALS: BP 163/72
[2017-07-06] MEDS: LEVOTHYROXINE 100MCG TABLET (0.1MG) PO SCH (05:53)
[2017-07-06 08:00] VITALS: BP 130/63
--- NOTE | 2017-07-06 08:19 | ECGEPIP ---
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
[2017-07-06] MEDS: VALSARTAN 80 MG TAB (DIOVAN) PO SCH (09:11)
[2017-07-06] MEDS: ENOXAPARIN 30 MG/0.3 ML SYR (J1650) SC SCH (09:12)
[2017-07-06] MEDS: hydroCHLOROthiazide 12.5 MG CAPSULE PO SCH (09:12)
[2017-07-06] MEDS: MEGESTROL ES SUSP 625 MG/5 ML UDC PO SCH (09:12)
[2017-07-06 14:00] VITALS: BP 159/88
[2017-07-06] MEDS: PERCOCET 5MG/325MG TAB PO PRN (18:58)
[2017-07-06] MEDS: zolPIDEM TARTRATE 5 MG TAB PO SCH (21:30)
[2017-07-06] MEDS: LATANOPROST 0.005% OPHTH SOLN 2.5 ML OU SCH (21:31)
[2017-07-06] MEDS: ALPRAZolam 0.25 MG TAB PO PRN (21:35)
[2017-07-06 22:00] VITALS: BP 141/70
[2017-07-07] MEDS: LEVOTHYROXINE 100MCG TABLET (0.1MG) PO SCH (05:59)
[2017-07-07] MEDS: PERCOCET 5MG/325MG TAB PO PRN ×2 (05:59→14:51)
[2017-07-07 06:00] VITALS: BP 148/71
[2017-07-07 08:56] LABS: EOS % 0.1 % (0.0-3.0); LARGE UNSTAINED CELL % 0.5 % (0.0-4.0); LYMPH # 0.6 K/mm3 (1.5-4.5); LYMPH % 5.9 % (24.0-44.0); MEAN CORPUSCULAR HEMOGLOBIN 29.8 pg (27.0-33.0); MEAN CORPUSCULAR HGB CONC 33.8 g/dl (32.0-36.5); MEAN CORPUSCULAR VOLUME 88.2 fl (80.0-96.0); MONO # 0.3 K/mm3 (0.0-0.8); MONO % 3.2 % (0.0-5.0); NEUTROPHILS # 8.7 K/mm3 (1.8-7.7); NEUTROPHILS % 90.4 % (36.0-66.0); PLATELET COUNT, AUTOMATED 442 k/mm3 (150-450); RED CELL DISTRIBUTION WIDTH 14.3 % (11.5-14.5); WHITE BLOOD COUNT 9.6 K/mm3 (4.0-10.0)
[2017-07-07] MEDS: VALSARTAN 80 MG TAB (DIOVAN) PO SCH (09:00)
[2017-07-07] MEDS: hydroCHLOROthiazide 12.5 MG CAPSULE PO SCH (09:00)
[2017-07-07 09:01] LABS: ALBUMIN 3.3 GM/DL (3.2-5.2); ALBUMIN/GLOBULIN RATIO 0.97 (1.00-1.93); ALKALINE PHOSPHATASE 61 U/L (45-117); ALT/SGPT 11 U/L (12-78); ANION GAP 9 MEQ/L (8-16); AST/SGOT 11 U/L (15-37); BILIRUBIN,TOTAL 0.4 MG/DL (0.2-1.0); BLOOD UREA NITROGEN 14 MG/DL (7-18); CALCIUM LEVEL 7.9 MG/DL (8.8-10.2); CARBON DIOXIDE LEVEL 27 MEQ/L (21-32); CHLORIDE LEVEL 100 MEQ/L (98-107); CREATININE FOR GFR 1.03 MG/DL (0.70-1.30); GLOMERULAR FILTRATION RATE > 60.0 (>35); GLUCOSE, FASTING 156 MG/DL (83-110); MAGNESIUM LEVEL 2.3 MG/DL (1.8-2.4); POTASSIUM SERUM 4.2 MEQ/L (3.5-5.1); SODIUM LEVEL 136 MEQ/L (136-145); TOTAL PROTEIN 6.7 GM/DL (6.4-8.2)
[2017-07-07] MEDS: MEGESTROL ES SUSP 625 MG/5 ML UDC PO SCH (09:03)
[2017-07-07] MEDS: ENOXAPARIN 30 MG/0.3 ML SYR (J1650) SC SCH (09:04)
[2017-07-07 09:06] VITALS: BP 111/66
--- NOTE | 2017-07-07 09:42 | CR ---
RADIATION ONCOLOGY CONSULTATION NOTE DATE: 07/06/2017 CHART NUMBER: [id number] DIAGNOSIS: Supraglottic larynx cancer stage IV A, [id number], now metastatic. ECOG PERFORMANCE STATUS: 3. CONSULTATION NOTE: Mr. Vasquez is a very pleasant 82-year-old white male with the diagnosis of squamous cell carcinoma of his epiglottis who is presenting to us today for consideration of palliative radiation therapy for newly diagnosed brain metastases. HISTORY OF PRESENT ILLNESS: The patient is well-known to our department and was initially seen by us on 05/10/2015 for treatment of his supraglottic larynx cancer. We treated the patient to his primary site for a dose of 7000 cGy from 06/04/2015 through 08/03/2015. The patient did well post therapy until recently when he began developing some bone pain and confusion. A CT scan was done of the head on 07/05/2017 which showed diffuse bilateral metastatic sites throughout the brain. He has initiated Decadron therapy today and is presenting to us for consideration of palliative radiation therapy. PAST MEDICAL HISTORY: The patient's past medical history is positive for chronic obstructive pulmonary disease, cardiac difficulties, hypertension and arthritis. ALLERGIES: The patient has NO KNOWN DRUG ALLERGIES. SOCIAL HISTORY: The patient has smoked one pack of cigarettes per day for approximately 30 years. He quit in 2004. He continued to smoke a cigar since then. He does drink alcohol daily. FAMILY HISTORY: The patient's family history is positive for a sister with breast cancer. REVIEW OF SYSTEMS: The patient's review of systems is positive for some shortness of breath as well as continued confusion and loss of memory. He is presenting in a wheelchair at this time and has shoulder and rib pain. He denies nausea, vomiting, fevers, chills, night sweats, diplopia, anorexia, visual disturbances, or bowel difficulties. PHYSICAL EXAMINATION: The patient is an elderly white male presenting in a wheelchair. HEENT: Exam is normocephalic, atraumatic. Extraocular movements are intact. There is no palpable cervical, supraclavicular, infraclavicular, axillary, or inguinal lymphadenopathy present. His lungs are generally clear to auscultation and percussion. He has distant breath sounds bilaterally. His heart has a regular rate and rhythm. His abdomen is benign with no hepatosplenomegaly, masses or tenderness. Skeletal exam reveals no tenderness to pressure or percussion of the bony skeleton. Neurologic exam is grossly intact to motor and sensory. ASSESSMENT: Clearly, the patient is a candidate for palliative radiation therapy for brain metastasis. I have discussed with the patient and his family in detail the potential benefits as well as possible acute and chronic sequelae of external beam radiation therapy. We have discussed logistics of treatment planning, simulation and subsequent fractionated daily radiation treatments. I have scheduled the patient for the next available simulation slot and radiation treatments will begin subsequently. Thank you for allowing us to participate in the care of this very pleasant gentleman. If I could be of any further assistance or provide you with any information, please feel free to contact me at anytime. As always warm regards. cc: Antonieta Bonilla MD, FACP DO Anya Lizama MD Mark Marzouk, MD
--- NOTE | 2017-07-07 13:12 | IPNPDOC ---
Text Note Date of Service The patient was seen on 07/07/17. NOTE Subjective: Patient is an 82 year old male with a PMHx of Metastatic Laryngeal / Epiglottis squamous cell CA (Stage IV, T1, N2, s/p Radiation), Hx of Salmonella Pancolitis, Alcohol abuse and Hypothyroidism who presented to the ER with complaints of left shoulder pain. Patient recently had a bone scan on 05/18/17 which showed increase suspicion for metastatic disease in R occipital bone, R superior pubic bone and L 4th rib. Has received chemotherapy with Dr. Bonilla. On 05/01/[address] scan of his chest revealed intrathoracic metastatic lesions and mediastinal and hilar adenopathy. Repeat CTA done currently to rule out PE, revealed worsening of these lesions. There was also a noted LN anterior to IVC which has increased Patient was also noted to have some confusion and a CT of his head was acquired which revealed diffuse metastatic lesions. Patient was seen and examined at the bedside. Currently he notes some confusion still. Objective: Vitals (See below) General: Lying in bed, no acute distress, comfortable, AAOx3 HEENT: NC, AT CVS: RRR, +S1S2 Lungs: Fair air entry b/l Abdomen: Soft, ND, ND Extremities: - Edema, - Calf tenderness Assessment and plan: Recurrent squamous cell carcinoma of epiglottis - Presented with left shoulder pain and confusion - no focal deficits noted - CT head: Diffuse bilateral metastatic disease with surrounding vasogenic edema , no shift / herniation - c/w Decadron for vasogenic edema - Dr. Ingram for whole brain radiation today - Discussed case with Dr. Bonilla; will see on consult today - Will likely need to consider hospice s/p Acute metabolic encephalopathy - likely 2/2 brain metastasis with vasogenic edema - See #1 Left shoulder pain - likely 2/2 arthritic changes - Presented with intractable left shoulder pain, suspected to be metastatic - XR shoulder: mild age-related degenerative changes - c/w Pain control with Percocet PRN - c/w PT / OT Insomnia / Anxiety - c/w Zolpidem Weight loss - likely 2/2 cancer - c/w Megace HTN - c/w Lisinopril / HCTZ Hypothyroidism - c/w Levothyroxine Cataracts - c/w eye drops DVT prophylaxis - will stop Lovenox - Will start SCDs Deposition: - Will await PT clearance - Will discuss with Dr. Ingram about WBR options and continuing as outpatient Code Status: - DNI, but wants chest compressions VS,Fishbone, I+O VS, Fishbone, I+O Laboratory Tests 07/07/17 08:21 Red Blood Count 3.96 L, Mean Corpuscular Volume 88.2, Mean Corpuscular Hemoglobin 29.8, Mean Corpuscular Hemoglobin Concent 33.8, Red Cell Distribution Width 14.3, Neutrophils (%) (Auto) 90.4 H, Lymphocytes (%) (Auto) 5.9 L, Monocytes (%) (Auto) 3.2, Eosinophils (%) (Auto) 0.1, Basophils (%) (Auto ) 0.0, Neutrophils # (Auto) 8.7 H, Lymphocytes # (Auto) 0.6 L, Monocytes # (Auto ) 0.3, Eosinophils # (Auto) 0.0, Basophils # (Auto) 0.0, Calcium Level 7.9 L, Aspartate Amino Transf (AST/SGOT) 11 L, Alanine Aminotransferase (ALT/SGPT) 11 L , Alkaline Phosphatase 61, Total Bilirubin 0.4, Total Protein 6.7, Albumin 3.3 Vital Signs Date Time Temp Pulse Resp B/P (MAP) Pulse Ox O2 Delivery O2 Flow Rate FiO2 07/07/17 11:29 Room Air 07/07/17 09:06 98.0 83 18 111/66 (18) 96 I&O- Last 24 Hours up to 6 AM 07/07/17 06:00 Intake Total 600 ml Balance 600 ml XANDER KWON MD Jul 07, 2017 13:12
[2017-07-07 14:00] VITALS: BP 104/58
--- NOTE | 2017-07-07 17:57 | CR.PDOC ---
[facility] Pain Clinic Consultation General Date of Consultation: 07/07/17 Consultation Report For: MICHEAL FARMER MD Chief Complaint The patient is a 82-year-old male admitted with a reason for visit of Metastatic Lung Cancer. Pain management is asked to evaluate for complaint of left shoulder blade pain. Mr. Cooper roberson Reports he has been having pain in this area for the last several months. He reports he also had pain in this area. 30 years ago and has had injection treatments to this area. Reports over the last several months has been having increasing cough and notes that this does increase his pain. Notes that his current pain medications are intermittently helpful. States that "whenever I had last night. Allowed me to sleep and it was the best I have felt." Rates his pain level today in the shoulder areas of 5-6/10. He did have his prescribed Percocet earlier today with fair improvement. Home Medications Scheduled (Valsartan/Hydrochlorothia 160-12.5 mg) 1 Tab Tab, 1 TAB PO DAILY, (Reported) Levothyroxine Sodium (Synthroid) 50 Mcg Tab, 100 MCG PO DAILY, (Reported) Travoprost (Travatan Z) 50 Drop/2.5 Ml Soln, 1 DROP OU QHS, (Reported) Scheduled PRN Gabapentin (Gabapentin) 100 Mg Cap, 100 MG PO BID PRN for PAIN, (Reported) Oxycodone/Acetaminophen (Oxycodone/Acetaminophen 5-325 mg) 1 Tab Tab, 1 TAB PO Q6H PRN for PAIN, (Reported) Allergies Coded Allergies: No Known Allergies (Unverified , 11/19/13) Past Medical History Medical History Past medical history is significant for metastatic laryngeal cancer with history of left scapular pain. Metastatic lesions to the right occipital bone, right superior pubic bone and left fourth rib, posteriorly. Other health concerns include hypothyroidism. Salmonella pancolitis Family History Family History Noncontributory Social History Social History Lives with his and has a supportive family. Denies illicit substance use. History of tobacco use, quit 1 year ago. History of alcohol use in the past Review of Systems Subjective HEENT: Reports: other (recent laryngeal cellulitis some difficulty with swallowing) Skin: Denies: lesions, rash, breakdown Pulmonary: Reports: cough (harsh productive cough), shortness of breath Cardiovascular: Reports: chest pain (denies), edema (denies) Gastrointestinal: Reports: constipation, other (decreased appetite), Denies: loss of bowel control Genitourinary: Denies: dysuria, hematuria, loss of bladder control Endocrine: Reports: Thyroid dysfunction (on replacement) Musculoskeletal: Reports: other (pain and tightness over left shoulder, scapula and into the ribs. Occasional pain on the right in the same area) Neurological: Reports: other (fatigue) Psych: Reports: mood normal, depression (does note some situational depression) , Denies: thoughts of self harm, thoughts of harming other Physical Examination Physical Examination Vital Signs/I&O Vital Signs Date Time Temp Pulse Resp B/P (MAP) Pulse Ox O2 Delivery O2 Flow Rate FiO2 07/07/17 15:21 18 Room Air 07/07/17 14:00 98.3 92 104/58 (73) 97 I&O- Last 24 Hours up to 6 AM 07/07/17 05:59 Intake Total 720 ml Output Total 0 ml Balance 720 ml General Exam: Positive: alert, attentive, talkative ENT EXAM: Positive: normocephalic, mucous membr. moist/pink, other (voice raspy ) Neck Exam: Positive: Limited range of motion (with neck flexion, extension and rotation.) Chest Exam: Positive: Decreased breath sounds (but no wheezes, rales or rhonchi ) Heart Exam: Positive: Regular rate and rhythm Abdominal Exam: Positive: Normal bowel sounds, Soft, Nondistended Extremity Exam: Negative: Edema Skin Exam: Positive: Warm, Dry, Negative: Rashes, Lesions Neuro Exam: Positive: Muscle Strength U/L Ext., Normal Tone, Reflexes 2+ Psych Exam: Positive: Memory Intact (good historian of recent events), Alert and oriented x 3 Inspection of spine Minimal tenderness with palpation over the cervical spinous processes, over the thoracic spinous processes. No specific under numbness with palpation over the ribs. Trigger points and tight fibrous bands are identified over the left scapula to the left greater than right trapezius muscle. Good shoulder shrug. Photo Checker And Assembler strength equal and strong. Diagnostic and Imaging Studies Whole-body bone scan was completed on 05/18/2017. This did demonstrate 3 foci of increased uptake, suspicious for metastatic disease in the right occipital bone, right superior pubic bone and left fourth rib posteriorly. Assessment 1. Left scapular pain. 2. Myofascial pain. 3. Metastatic laryngeal cancer with with multiple lesions noted in the left fourth posterior rib. Lungs, lymph nodes Recommendation and Plan When Dr. Santana was making this referral. She did asked in specific if we could do some injection treatment to the left shoulder blade area. There is evidence of trigger points in this area, which we could look at doing some injections. 2. I did discuss this with the patient and he was amenable to this option, however, stated that he had discussed it with Dr. Bonilla and he has the impression that she does not want him to have injection treatments. He is being further evaluated by Dr. Ayala, of radiation oncology and they are looking to do some radiation to the area where his pain is located. In the meantime if he could tolerate it might be helpful to start him on a bit of a muscle relaxer perhaps using tizanidine at 1-2 mg 3 times a day for muscle spasms. He has noted significant anxiety at nighttime, which affects his breathing and does increase the pain. A small dose of benzodiazepine at bedtime may also be helpful. We will certainly be glad to do trigger point injections but would want Dr. Ayala and Dr. Bonilla's approval to move forward with this treatment. I did ask the patient to be certain to not weight and to use his pain medication as needed. Thank you Dr. Farmer, for allowing us to participate in the care of your patient, Abhilash Vasquez. Should you have any questions we will be glad to discuss this with you at any time please contact us here at the pain center at [phone]. Raissa Roper Jul 07, 2017 17:57
--- NOTE | 2017-07-07 19:20 | CR ---
DATE OF CONSULTATION: 07/07/2017 REASON FOR CONSULTATION: Metastatic laryngeal cancer. HISTORY OF PRESENT ILLNESS: Mr. Vasquez is an 82-year-old man who was diagnosed with a locally advanced laryngeal cancer in 2014. He received radiation therapy at that time. He was found to have metastatic lung lesions on a PET scan from October 2015. He was started on chemotherapy around that time. More recently, he has been on pembrolizumab. He is presently admitted for confusion and left shoulder pain. He is currently on analgesics for his pain and he reports that his pain has been better since he has been in the hospital. He also had symptoms of confusion and was therefore sent for a CT scan, which unfortunately showed metastatic disease in the brain. He has seen Dr. Ingram, who is going to start whole brain radiation tomorrow. PHYSICAL EXAMINATION: He was seated comfortably on the chair, not in distress. He was oriented to time, place and person. He did admit that at times he felt confused a few weeks prior to admission. He also said that he had some headaches prior to this admission, but the headaches have improved since admission. LUNGS: Fair air entry. No rales, rhonchi or wheeze. CARDIAC: S1, S2 regular. No murmur. No gallop. BACK: No thoracic lumbar spine tenderness. EXTREMITIES: No calf swelling. No pedal edema. IMPRESSION AND PLAN: Mr. Vasquez is an 82-year-old man who was until recently on pembrolizumab for a metastatic laryngeal cancer. A CT scan on this admission showed multiple brain metastases. I discussed with Mr. Vasquez that patients with multiple brain metastases have poor prognosis with limited life expectancy. I also discussed that it is not usual for laryngeal cancer to metastasize to the brain. I recommended that he complete his radiation therapy. I also discussed that he should discontinue systemic treatment at this time, as this will not alter his long-term prognosis. I recommended a referral to hospice service after he completes radiation therapy. Mr. Vasquez wanted time to think about this. I will attempt to contact his daughter with the above discussion. Thank you very much for informing me of his admission. Copy to Nikita Arenas MD, Ary Marley DO, Tonny Ingram MD [facility]
[2017-07-07] MEDS ORDERED: CALCIUM CARBONATE 500 MG CHEW U/D PO ONE (20:30)
[2017-07-07] MEDS: ALPRAZolam 0.25 MG TAB PO PRN (20:30)
[2017-07-07] MEDS: zolPIDEM TARTRATE 5 MG TAB PO SCH (20:30)
[2017-07-07] MEDS: LATANOPROST 0.005% OPHTH SOLN 2.5 ML OU SCH (20:31)
[2017-07-08 06:00] VITALS: BP 158/79
[2017-07-08] MEDS: LEVOTHYROXINE 100MCG TABLET (0.1MG) PO SCH (06:20)
[2017-07-08 06:22] LABS: EOS # 0.1 K/mm3 (0.0-0.50); EOS % 0.5 % (0.0-3.0); LARGE UNSTAINED CELL # 0.1 K/mm3 (0.0-0.4); LARGE UNSTAINED CELL % 0.4 % (0.0-4.0); LYMPH # 0.7 K/mm3 (1.5-4.5); LYMPH % 5.4 % (24.0-44.0); MEAN CORPUSCULAR HEMOGLOBIN 29.7 pg (27.0-33.0); MEAN CORPUSCULAR HGB CONC 33.7 g/dl (32.0-36.5); MEAN CORPUSCULAR VOLUME 88.1 fl (80.0-96.0); MONO # 0.4 K/mm3 (0.0-0.8); MONO % 3.2 % (0.0-5.0); NEUTROPHILS # 11.4 K/mm3 (1.8-7.7); NEUTROPHILS % 90.4 % (36.0-66.0); PLATELET COUNT, AUTOMATED 432 k/mm3 (150-450); RED CELL DISTRIBUTION WIDTH 14.4 % (11.5-14.5); WHITE BLOOD COUNT 12.6 K/mm3 (4.0-10.0)
[2017-07-08 06:36] LABS: ALBUMIN 3.2 GM/DL (3.2-5.2); ALBUMIN/GLOBULIN RATIO 0.84 (1.00-1.93); ALKALINE PHOSPHATASE 56 U/L (45-117); ALT/SGPT 13 U/L (12-78); ANION GAP 8 MEQ/L (8-16); AST/SGOT 10 U/L (15-37); BILIRUBIN,TOTAL 0.3 MG/DL (0.2-1.0); BLOOD UREA NITROGEN 22 MG/DL (7-18); CALCIUM LEVEL 8.3 MG/DL (8.8-10.2); CARBON DIOXIDE LEVEL 28 MEQ/L (21-32); CHLORIDE LEVEL 103 MEQ/L (98-107); CREATININE FOR GFR 1.16 MG/DL (0.70-1.30); GLOMERULAR FILTRATION RATE > 60.0 (>35); GLUCOSE, FASTING 140 MG/DL (83-110); MAGNESIUM LEVEL 2.4 MG/DL (1.8-2.4); POTASSIUM SERUM 4.3 MEQ/L (3.5-5.1); SODIUM LEVEL 139 MEQ/L (136-145)
[2017-07-08] MEDS ORDERED: NS 1,000 ML IV SCH (08:00)
[2017-07-08] MEDS: hydroCHLOROthiazide 12.5 MG CAPSULE PO SCH (08:21)
[2017-07-08] MEDS: MEGESTROL ES SUSP 625 MG/5 ML UDC PO SCH (08:22)
[2017-07-08 08:24] VITALS: BP 123/67
[2017-07-08] MEDS: VALSARTAN 80 MG TAB (DIOVAN) PO SCH (08:24)
[2017-07-08] MEDS: PERCOCET 5MG/325MG TAB PO PRN (08:26)
[2017-07-08] MEDS ORDERED: PANTOPRAZOLE 40MG TAB (PROTONIX) PO SCH (09:00)
[2017-07-08] MEDS ORDERED: PANT40TA2 PO (10:58)
[2017-07-08] MEDS ORDERED: MEGA625S PO (10:58)
[2017-07-08] MEDS ORDERED: DEXA4TA PO (10:58)
--- NOTE | 2017-07-08 15:37 | DSES ---
DATE OF ADMISSION: 07/05/2017 DATE OF DISCHARGE: 07/08/2017 ATTENDING PHYSICIAN: Nikita Arenas MD, Anya Bermudez MD PRIMARY CARE PHYSICIAN: Ary Marley DO REFERRING PHYSICIAN: None. CONSULTING PHYSICIANS: Antonieta Bonilla MD, Tonny Ingram MD, Nurse Practitioner Raissa Roper. PROCEDURES: None. 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 The patient recently had a bone scan on 05/18/2017, which showed increased suspicion for metastatic disease in his right occipital bone, right superior pubic bone, and left 4th rib posteriorly. He has received chemotherapy with Dr. Bonilla. On 05/01/2017, a CT scan of the chest revealed intrathoracic metastatic lesions and mediastinal and hilar adenopathy. Repeat CTA done currently on this admission to rule out pulmonary embolism revealed worsening of these lesions. There is also a noted lymph node anterior to the inferior vena cava which has increased in size. The patient was also complaining of confusion upon presentation and CT scan of his head was acquired which subsequently revealed diffuse metastatic lesions. HOSPITAL COURSE: 1. 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 Presented with left shoulder pain and confusion, no focal deficits were noted. CT head revealed diffuse bilateral metastatic disease with surrounding vasogenic edema, no shift or herniation was noted. Patient was started on Decadron to reduce vasogenic edema. Dr. Ingram was consulted and patient was prepared for whole brain radiation. Case was discussed with Dr. Bonilla and Dr. Ingram. Dr. Bonilla has suggested hospice to the patient as no other chemotherapy is warranted. The patient will receive whole brain radiation therapy and then will decide whether he wants to be hospice at that point. 2. Status post acute metabolic encephalopathy, likely secondary to brain metastases and vasogenic edema. 3. Left shoulder pain, likely secondary to arthritic changes. Presented with intractable left shoulder pain suspected to be metastatic. X-rays showed mild age-related degenerative changes. Continued with pain control with Percocet. Continued with physical therapy/occupational therapy (PT/OT). 4. Insomnia/anxiety. Continue with Zolpidem. 5. Weight loss, likely secondary to cancer. Continue with Megace. 6. Hypertension. Continue with lisinopril and hydrochlorothiazide. 7. Hypothyroidism. Continue with levothyroxine. 8. Cataracts. Continue with eye drops. 9. Deep venous thrombosis (DVT) prophylaxis. Will stop Lovenox and start compression devices. DISCHARGE MEDICATIONS: Patient has been discharged home with the following medication list: - dexamethasone 4 mg by mouth three times a day - megestrol 625 mg by mouth daily - Protonix 40 mg by mouth daily Continued medications include: - gabapentin 100 mg by mouth twice a day - levothyroxine 100 mcg by mouth daily - oxycodone/acetaminophen one tablet by mouth every 6 hours as needed for pain - travoprost one drop in each eye nightly - valsartan/hydrochlorothiazide 160/12.5 mg one tablet by mouth daily DISCHARGE INSTRUCTIONS: Patient has been advised to followup with his primary care provider, oncologist, and radiation oncologist within the next 7 days. He has been advised to remain compliant with treatment plan and medications and to return to the emergency room if he experiences any problems. TIME SPENT ON DISCHARGE: Greater than 35 minutes.
== END 2017-07-08 13:38 | disposition home or self-care (01) | DRG 146 ==
LOC: M ED 06:31 → M ED INP 08:52 → M MS4PR 11:15 → M PED 18:36 → M MSPAV 07-06 12:55
PROVIDERS: ADMIT General Practice; ATTEND Internal Medicine
DX: C32.1 Malignant neoplasm of supraglottis (principal); G93.6 Cerebral edema; G93.41 Metabolic encephalopathy; C78.01 Secondary malignant neoplasm of right lung; C78.02 Secondary malignant neoplasm of left lung; R64 Cachexia; C79.31 Secondary malignant neoplasm of brain; C79.89 Secondary malignant neoplasm of other specified sites; C79.51 Secondary malignant neoplasm of bone; M79.1 Myalgia; I10 Essential (primary) hypertension; I95.1 Orthostatic hypotension; F41.9 Anxiety disorder, unspecified; G47.00 Insomnia, unspecified; H26.9 Unspecified cataract; M19.012 Primary osteoarthritis, left shoulder; E03.9 Hypothyroidism, unspecified; Z79.891 Long term (current) use of opiate analgesic; Z79.899 Other long term (current) drug therapy; Z92.21 Personal history of antineoplastic chemotherapy; Z92.3 Personal history of irradiation; Z87.891 Personal history of nicotine dependence; R07.9 Chest pain, unspecified; M25.512 Pain in left shoulder

== ENCOUNTER 2017-07-09 09:17 | Outpatient (RCR) | payer MEDICARE, MEDICAID ==
[~2017-07-09 09:17] MED LIST changes: +DEXA4TA PO; +MEGA625S PO; +OXYC1TAB23 PO; +PANT40TA2 PO
[2017-07-13] MEDS ORDERED: DEXA4TA PO (14:26)
--- NOTE | 2017-07-14 06:46 | RADONC ---
RADIATION ONCOLOGY PROGRESS NOTE DATE: 07/13/2017 CHART NUMBER: [id number] Mr. Vasquez is presently at a dose of 900 cGy to his whole brain and is tolerating treatments quite well at this point with no complaints at this time related to his radiation therapy or disease. He is having some low back pain. REVIEW OF SYSTEMS: The patient's review of systems is positive for low back pain but is otherwise noncontributory. Denies nausea, vomiting, fevers, chills, night sweats, diplopia, headaches, anxiety or depression, anorexia, weight loss, visual disturbances, chest pain, urinary or bowel difficulties, bone pain, or neurological problems. PHYSICAL EXAMINATION: The patient's skin is in good condition with no evidence of radiation change present. There is no moist or dry desquamation. The remainder of his physical exam remains unchanged. The patient is tolerating his treatments quite well and radiation will continue as scheduled. I have ordered a new prescription of Decadron since he reports that he is out of pills. The patient has been complaining of some low back pain and I am scheduling him for simulation and initiation of treatment to that region.
--- NOTE | 2017-07-21 07:51 | RADONC ---
RADIATION ONCOLOGY PROGRESS NOTE: DATE: 07/20/2017 CHART NUMBER: [id number] Mr. Vasquez is presently at a dose of 2400 cGy to his whole brain and is tolerating his radiation quite well with no complaints related to his radiation therapy. Overall unfortunately, the patient appears to continue to deteriorate. He says he has no appetite and has not been eating well. His weight today is down an additional 5 pounds to 144 pounds. This is a 10 pounds weight loss in the past 2 weeks. He feels weak and tired. He wishes to consider hospice. REVIEW OF SYSTEMS: The patient's review of systems is positive for general continued deterioration. He has not been eating. He has no energy. PHYSICAL EXAMINATION: The patient's skin is in good condition with no evidence of radiation change present. His weight is down as this noticed above. ASSESSMENT: The patient will complete radiation to the brain in 2 days. Hospice is coming in to speak with him after that and he will be signing up with them. We will therefore discharge him from our followup at this point.
== END 2017-07-25 ==
LOC: M ONCR 09:17
PROVIDERS: ATTEND Radiology Radiation Oncology
DX: C32.1 Malignant neoplasm of supraglottis (principal); C79.31 Secondary malignant neoplasm of brain; C79.51 Secondary malignant neoplasm of bone